=== PATIENT | male | born 1940 ===

== ENCOUNTER 2024-10-14 05:30 | Emergency (ER) | payer OTHER ==
[~2024-10-14] VITALS: Ht 172.7 cm; Wt 68.0 kg
[2024-10-14 05:36] VITALS: BP 152/72; PULSE 97; RESP 14; TEMP 97.1; O2SAT 96
--- NOTE | 2024-10-14 05:57 | ED.PDOC ---
History of Present Illness HPI Comments 84-year-old male who is brought in by ambulance for confusion. Per EMS report, patient is a resident of a longterm facility and is reported to have walked out of the facility by himself and was found by bystanders, who called 911. Patient has no complaints at this time. Chief Complaint: ALOC Time Seen by MD: 05:50 Reviewed Notes: [facility] Office Supervisor Notes Allergies: Coded Allergies: NO KNOWN ALLERGIES (Unverified , 10/14/24) Information Source: Emergency Med Personnel Mode of Arrival: EMS All Other Systems: Reviewed and Negative (As per HPI) Physical Exam General Appearance: No Apparent Distress, Normal HEENT: Normal ENT Inspection, Pharynx Normal, TMs Normal Neck: Full Range of Motion, Non-Tender, Normal, Normal Inspection Respiratory: Chest Non-Tender, Lungs Clear, No Accessory Muscle Use, No Respiratory Distress, Normal Breath Sounds Cardiovascular: No Edema, No JVD, No Murmur, No Gallop, Normal Peripheral Pulses, Regular Rate/Rhythm Breast Exam: Deferred Gastrointestinal: No Organomegaly, Non Tender, No Pulsatile Mass, Normal Bowel Sounds, Soft Genitalia: Deferred Pelvic: Deferred Rectal: Deferred Extremities: No calf tenderness, Normal capillary refill, Normal inspection, Normal range of motion, Non-tender, No pedal edema Musculoskeletal : Apperance: Normal Neurologic: Alert, upholsterer limousine and hearse II-XII nml as Tested, No Motor Deficits, Normal Affect, Normal Mood, No Sensory Deficits, Other (Pleasantly confused) Cerebellar Function: Normal Reflexes: Normal Skin: Dry, Normal Color, Warm Lymphatic: No Adenopathy Was a procedure done? Was a procedure done?: No Differential Dx Considerations may include: Dementia X-Ray, Labs, Meds, VS Vital Signs Date Time Temp Pulse Resp B/P (MAP) Pulse Ox O2 Delivery O2 Flow Rate FiO2 10/14/24 05:36 97.1 97 14 152/72 (98) 96 97.1 10/14/24 05:35 83 Time of 1ST Reevaluation: 06:20 Reevaluation 1ST: Unchanged Patient Education/Counseling: Diagnosis, Treatment Family Education/Counseling: No Family Present SEPSIS Sepsis Screen Date sepsis recognized/suspect: Oct 14, 2024 Time Sepsis recognized/suspect: 0542 Recent Procedure: No On Antibiotic Therapy: No Respiratory Rate >20: No Heart Rate >90: Yes Temp<36 C (96.8 F) or >38.3 C: No SBP <90 or MAP <65 mmHG: No New Acute Mental Status Change: No Is the patient on CPAP, BIPAP,: No Physician Orders Chest Portable (10/14/24 05:36) Head Without Contrast (10/14/24 05:36) Vital Signs Date Time Temp Pulse Resp B/P (MAP) Pulse Ox O2 Delivery O2 Flow Rate FiO2 10/14/24 05:36 97.1 97 14 152/72 (98) 96 97.1 10/14/24 05:35 83 Departure 1 Departure Time of Disposition: 05:57 (Patient eloped from a SNF. Patient was found by a macy carlos. SNF staff are here and report patient is at his baseline and would like to take him home.) Impression: Primary Impression: Resides in longterm facility Additional Impression: Dementia Qualified Codes: F03.B0 - Unspecified dementia, moderate, without behavioral disturbance, psychotic disturbance, mood disturbance, and anxiety Disposition: [facility] Condition: Stable Critical Care Note Critical Care Time?: No Stability Stability form required: No Heart Score Heart Score: Heart Score Response (Comments) Value History N/A 0 EKG N/A 0 Age N/A 0 Risk Factors N/A 0 Troponin N/A 0 Total 0 I personally scribed for JUICE RICHARDSON MD ([email or web address]) on 10/14/24 at 05:57. Electronically submitted by Tapan Hay [email or web address]). JUICE RICHARDSON MD Oct 14, 2024 05:57
--- NOTE | 2024-10-14 14:18 | ECG ---
[facility] Test Date: 2024-10-14 Test Time: 05:35:11 Pat Name: DANA BROTHERS Department: ED Room: Gender: M Manager Acquisition: : 1940 Requested By: JUICE RICHARDSON Order Number: [id number] Reading MD: Miguelangel Tejada Measurements Intervals [place] Rate: 83 P: 0 CT: 0 QRS: -62 QRSD: 140 T: 22 QT: 399 QTc: 469 Interpretive Statements Atrial fibrillation RBBB and LAFB Left ventricular hypertrophy Electronically Signed On 10-14-2024 22:57:27 PDT by Miguelangel Tejada Please click the below link to view image of tracing.
== END 2024-10-14 07:54 | disposition home or self-care (01) ==
LOC: ER 05:30 → EDBD 05:30 → ER 06:06
DX: F03.90 Unspecified dementia, unspecified severity, without behavioral disturbance, psychotic disturbance, mood disturbance, and anxiety (principal); R14.0 Abdominal distension (gaseous); Z79.899 Other long term (current) drug therapy
CPT/HCPCS: 93005